=== PATIENT | male | born 1960 | race Caucasian/White ===

== ENCOUNTER 2020-05-13 18:40 | Emergency (ER) | payer OTHER, SELFPAY ==
[2020-05-13] VITALS (8 sets, daily range): BP systolic 141–167; BP diastolic 71–83; PULSE 70–83; RESP 14–23; TEMP 36.9; O2SAT 93–99; BMI 26.5
--- NOTE | 2020-05-13 18:48 | ED.GENADULT ---
HPI - General Adult General Chief complaint: Fall Stated complaint: Fall on stairs,right hip/back pain Time Seen by Provider: 05/13/20 18:47 Source: patient Mode of arrival: EMS Limitations: no limitations History of Present Illness HPI narrative: Patient is a 60-year-old male here for evaluation of injuries that he sustained just prior to arrival. Patient states he was coming back from a day of hunting. He was wearing his hunting close. He states he was walking down some stairs that were covered with my office in lost his balance falling back hitting his right side on the stairs. Patient states that he did not hit his head. He has no neck pain. No loss of consciousness. Has no extremity injuries. Describes pain on his right flank and right buttocks. He did receive fentanyl and ketamine by EMS prior to arrival. Related Data Allergies Allergy/AdvReac Type Severity Reaction Status Date / Time Penicillins Allergy Verified 05/13/20 18:52 Review of Systems Constitutional Constitutional: Denies fatigue and Denies headache(s) Eyes Eyes: Denies change in vision ENT Ears, Nose, Mouth, and Throat: Denies headache(s) Cardiovascular Cardiovascular: Denies chest pain and Denies dyspnea Respiratory Respiratory: Denies dyspnea Gastrointestinal Gastrointestinal: Denies abdominal pain Genitourinary Genitourinary: Denies dysuria Genitourinary: Denies dysuria Musculoskeletal Comments: Right buttocks pain/right hip pain/right flank pain Integumentary/Breasts Skin/Breast: Denies lesions and Denies rash Neurologic Neurologic: Denies behavioral changes and Denies headache(s) Psychiatric Psychiatric: Denies behavioral changes Endocrine Endocrine: Denies fatigue Hematologic/Lymphatic Hematologic/Lymphatic: Denies easy bleeding and Denies easy bruising Allergic/Immunologic Allergic/Immunologic: Denies urticaria Patient History Medical History Patient denies medical problems Social History Smoking Status: Unknown if ever smoked Exam Initial Vital Signs Initial Vital Signs: Vital Signs Pulse Oximetry 93 05/13/20 18:41 Const General: comfortable Limitations: mental status not altered HENMT Head: normal to inspection and normocephalic Chest Chest: No crepitus and No tenderness Resp Effort & Inspection: normal respiratory effort Auscultation: clear to auscultation bilaterally Cardio Rate: regular rate Rhythm: regular rhythm GI Inspection: non-distended Palpation: soft, No firm and No tender Back/Spine/Pelvis Cervical Spine: No cervical spinal tenderness Thoracic/Lumbar Spine: paraspinal tenderness (Right-sided lumbar), No thoracic spinal tenderness and No lumbar spinal tenderness Skin Lesions: no lesions Rashes: no rashes Neuro General: patient alert, patient awake and patient oriented x3 Cognition: normal cognition Speech: speech normal Extrem General: capillary refill normal and edema Other: Patient can flex and extend at the right hip in the right knee without much discomfort. Left lower extremity and bilateral upper extremities unremarkable pelvis is stable. Psych Appearance: grossly normal and well kempt Procedures FAST Exam FAST Exam 1: Fluid in Morison's pouch: No Fluid in Splenorenal Junction: No Fluid around bladder, Transverse view: No Fluid around bladder, Sagittal view: No Fluid in Pericardial Sac: No Gross Wall Motion Abnormality: No Study normal for this patient: Yes Images saved for further review: No Scores GCS [place] coma scale eye opening: Spontaneous Mando coma scale verbal response: Orientated [place] coma scale motor response: Obey commands [place] coma scale total score: 15 Nexus Score for C-Spine Focal Neurologic deficit present: No Midline spinal tenderness present: No Altered level of conciousness present: No Intoxication present: No Distracting Injury Present: No Nexus Criteria for C-spine: 0 Course Orders Ordered: ED Orders 05/13/20 18:48 CT abdomen pelvis w con Stat 05/13/20 19:08 Complete Blood Count MAN DIFF Stat Comprehensive Metabolic Panel Stat Lipase Stat Discontinued Medications Hydrocodone Bitart/Acetaminophen (Hydrocodone/Acet 5/325 Prepack) 1 bottle MISC SEEINSTR ONE Stop: 05/13/20 20:46 Last Admin: 05/13/20 20:53 Dose: 1 bottle Documented by: ALEXANDER Hydromorphone HCl (Hydromorphone 1 Mg Inj) 1 mg IV NOW ONE Stop: 05/13/20 19:40 Last Admin: 05/13/20 20:04 Dose: 1 mg Documented by: ANALI Sodium Chloride (Normal Saline 0.9%) 1,000 mls @ 1,000 mls/hr IV BOLUS ONE Stop: 05/13/20 19:47 Last Infusion: 05/13/20 20:53 Dose: 0 mls/hr Documented by: Admin: 05/13/20 18:55 Dose: 1,000 mls/hr Documented by: ALEXANDER Vital Signs Vital signs: Vital Signs - 8 hr 05/13/20 19:30 05/13/20 20:00 05/13/20 20:30 Pulse Rate 74 76 75 Respiratory Rate 18 20 23 Blood Pressure Pulse Oximetry 98 98 96 05/13/20 20:55 Pulse Rate 76 Respiratory Rate 17 Blood Pressure 150/72 H Pulse Oximetry 96 Medical Decision Making Lab Data Lab results reviewed: Yes I reviewed the patient's lab results. Result diagrams: 05/13/20 19:08 05/13/20 19:08 Labs: Lab Results 05/13/20 05/13/20 Range/Units 19:08 19:08 WBC 8.5 (4.5-11.0) X10^3/uL RBC 4.22 L (4.5-5.9) X10^6/uL Hgb 13.5 (13.5-17.5) g/dL Hct 39.8 L (41-53) % MCV 94.3 (80-100) fL MCH 31.9 (26-34) PG MCHC 33.8 (30-36) % RDW 12.7 (11.6-14.8) % Plt Count 199 (150-400) X10^3/uL Total Counted 100 Seg Neutrophils % 83.0 H (38-70) % Lymphocytes % (Manual) 11.0 L (25-45) % Monocytes % (Manual) 6.0 (2-11) % Neutrophils # (Manual) 7055 H (8611-3580) /uL RBC Morphology Normal morphology Sodium 138 (137-145) mmol/L Potassium 3.7 (3.4-5.1) mmol/L Chloride 104 (98-107) mmol/L Carbon Dioxide 32 (22-32) mmol/L BUN 17 (9-20) mg/dL Creatinine 0.82 (0.66-1.25) mg/dL Estimated GFR > 60.0 (>60) mL/min BUN/Creatinine Ratio 20.7 (6-22) Glucose 98 (70-100) mg/dL Calcium 9.0 (8.4-10.2) mg/dL Total Bilirubin 0.4 (0.2-1.3) mg/dL AST 27 (17-59) IU/L ALT 22 (<50) IU/L Alkaline Phosphatase 60 (38-126) U/L Total Protein 7.2 (6.3-8.2) g/dL Albumin 4.2 (3.5-5.0) g/dL Globulin 3.0 (1.7-4.1) g/dL Albumin/Globulin Ratio 1.4 (1.0-2.8) Lipase 91 (23-300) U/L Imaging Data CT scan - abdomen/pelvis: Radiologist's Impression: [address] [id number] Scan ReportSigned Patient: Aaron Jaffe BMR#: [id number]: [id number]:[id number]/Sex: 60 / MDate of Service: 05/13/20Loc: EDAccession Number: [id number] Procedure: CT abdomen pelvis w con Ordering Provider: Rashid Gilliam D.O. PROCEDURE: CT ABDOMEN PELVIS W CON INDICATIONS: R Lower back pain after fall TECHNIQUE: After the administration of intravenous contrast, 5 mm thick sections acquired from the diaphragm to the symphysis. 5 mm coronal and sagittal reformats were acquired. For radiation dose reduction, the following was used: automated exposure control, adjustment of mA and/or kV according to patient size. COMPARISON: None. FINDINGS: Image quality: Excellent. ABDOMEN: Scattered subsegmental atelectasis and/or scarring. No focal consolidation. Heart size is normal. Solid organs: Liver is normal in size and enhancement. The gallbladder is grossly unremarkable. Biliary system is non dilated. Pancreas enhances normally. Spleen is normal in size and enhancement. No adrenal nodules. No hydronephrosis. Subcentimeter renal foci, statistically cysts, although technically too small to characterize accurately and therefore nonspecific. Peritoneum and bowel: Bowel loops demonstrate normal wall thickness and caliber. No free fluid or air. Appendix is not clearly identified however no suspicious pericecal inflammatory changes are seen. Colonic diverticulosis is seen without evidence of acute complication. Nodes and vessels: No retroperitoneal or mesenteric adenopathy by size criteria. Aorta and inferior vena cava are normal in size. Miscellaneous: No ventral hernias. PELVIS: Genitourinary: Bladder wall thickness is normal. Miscellaneous: No inguinal hernias or adenopathy. Bones: No vertebral body compression fracture. Spondylytic changes and facet arthropathy. IMPRESSION: Overall, no acute abnormality. Age-indeterminate mild circumferential bladder wall thickening, raising possibility of cystitis although recommend clinical correlation and with laboratory data. Dictated by: Lukasz Osullivan M.D. on 05/13/2020 at 19:41 Approved by: Lukasz Osullivan M.D. on 05/13/2020 at 19:45 [facility] Narrative Medical decision making narrative: No bruising externally. Fast exam was negative. CT scan of his abdomen and pelvis show no acute intra-abdominal pathology. His right hip is unremarkable on the CT scan as well. No other injuries reported from the event by the patient or found on exam. Will discharge patient home with symptom control. He did not hit his head. No loss of consciousness. No neck pain. Feel we can hold on further radiologic studies. He is given return precautions. He expressed understanding and agreement. Discharge Plan Departure Patient Disposition: Home Clinical Impression: Fall, Contusion of flank Instructions: DI for Muscle Strain Activity Restrictions/Additional Instructions: Recommend that you take the medications as directed. You have no restrictions on your activities. Expect to be more sore tomorrow. After that every day it should be better than the day before. Contact your primary provider for a follow-up. Return to the emergency department for any new or worsening symptoms
[2020-05-13] MEDS: SODIUM CHLORIDE 0.9% 1,000 ML 1000 ML IV (18:55)
[2020-05-13 19:14] LABS: Hematocrit 39.8 % (41-53); Hemoglobin 13.5 g/dL (13.5-17.5); Mean Corpuscular HGB Conc 33.8 % (30-36); Mean Corpuscular Hemoglobin 31.9 PG (26-34); Mean Corpuscular Volume 94.3 fL (80-100); Platelet Count 199 X10^3/uL (150-400); Red Blood Cell Count 4.22 X10^6/uL (4.5-5.9); Red Cell Distribution Width 12.7 % (11.6-14.8); White Blood Cell Count 8.5 X10^3/uL (4.5-11.0)
[2020-05-13 19:29] LABS: Alanine Aminotransferase 22 IU/L (<50); Albumin 4.2 g/dL (3.5-5.0); Albumin Globulin Ratio 1.4 (1.0-2.8); Alkaline Phosphatase 60 U/L (38-126); Aspartate Aminotransferase 27 IU/L (17-59); BUN Creatinine Ratio 20.7 (6-22); Bilirubin Total 0.4 mg/dL (0.2-1.3); Blood Urea Nitrogen 17 mg/dL (9-20); Carbon Dioxide 32 mmol/L (22-32); Chloride 104 mmol/L (98-107); Estimated Glomerular Filt Rate > 60.0 mL/min (>60); Glucose 98 mg/dL (70-100); HEMOLYSIS < 15 (0-50); Lipase 91 U/L (23-300); Potassium 3.7 mmol/L (3.4-5.1); Sodium 138 mmol/L (137-145); Total Protein 7.2 g/dL (6.3-8.2)
[2020-05-13 19:52] LABS: Neutrophils Absolute Manual 7055 /uL (3000-5900); RBC Morphology Normal Morphology; Total Cells Counted 100
[2020-05-13] MEDS: HYDROMORPHONE 1 MG INJ IV (20:04)
[2020-05-13] MEDS: HYDROCODONE/ACET 5/325 PREPACK 1 BOTTLE MISC (20:53)
== END 2020-05-13 21:11 | disposition home or self-care (01) ==
PROVIDERS: Emergency Provider Emergency Medicine
DX: S30.1XXA Contusion of abdominal wall, initial encounter (principal); M54.5 Low back pain; M25.551 Pain in right hip; W19.XXXA Unspecified fall, initial encounter
CPT/HCPCS: 36415; 74177; 80053; 83690; 85025; 96361; 96374; 99281; 99284; J1170